=== PATIENT | female | born 1960 | race Hispanic/Latino ===

== ENCOUNTER 2018-06-14 15:00 | Outpatient (RCR) | payer OTHER | END 2018-06-16 | LOC: PT 15:00 | PROVIDERS: ATTEND Specialist | DX: M24.612 Ankylosis, left shoulder (principal); M75.82 Other shoulder lesions, left shoulder ==

== ENCOUNTER 2018-06-23 15:00 | Outpatient (RCR) | payer OTHER | END 2018-07-16 | LOC: PT 15:00 | PROVIDERS: ATTEND Specialist | DX: M24.612 Ankylosis, left shoulder (principal); M75.82 Other shoulder lesions, left shoulder ==

== ENCOUNTER → 2018-07-28 | Outpatient (CLI) | payer OTHER ==
--- NOTE | 2018-07-28 12:57 | Diagnostic Imaging Report ---
EXAM: Complete Abdominal Ultrasound INDICATION: \S\BENIGN NEOPLASM OF DESCENDNING COLON COMPARISON: None. TECHNIQUE: Transverse and longitudinal images of the upper abdomen were obtained. FINDINGS: Liver: Size: 10.7 cm in the right midclavicular line, normal Appearance: Normal echogenicity, smooth contour Mass: No focal masses Spleen: Size: 11 cm in length, normal Echogenicity: Normal Mass: No focal masses Gallbladder: Cholecystectomy. Bile Ducts: Intrahepatic Ducts: No dilatation Extrahepatic Ducts: Common bile duct measures 0.8 cm, no dilatation Pancreas: Suboptimal evaluated. Kidneys: Length: Right 10.9 cm Left 11.2 cm Echogenicity: Normal Collecting System: No hydronephrosis Stone: None Cyst/Mass: None Vessels: Aorta: Visualized portions are normal Inferior Vena Cava: Visualized portions are normal Main Portal Vein: 0.9 cm, normal size with hepatopetal flow. Free Fluid: No ascites or pleural effusion IMPRESSION: Cholecystectomy. Otherwise, unremarkable abdominal ultrasound. Signed by: Dr. Stacey Newberry M.D. on 07/28/2018 12:53 PM
== END ==
LOC: US 11:32
PROVIDERS: ATTEND Internal Medicine Gastroenterology
DX: D12.4 Benign neoplasm of descending colon (principal); E11.9 Type 2 diabetes mellitus without complications; I85.00 Esophageal varices without bleeding
CPT/HCPCS: 76700

== ENCOUNTER 2021-09-17 21:09 | Inpatient (IN) | payer OTHER ==
[~2021-09-17] VITALS: Ht 154.9 cm; Wt 45.1 kg
[2021-09-17] MEDS ORDERED: ONDANSETRON HCL INJ 2MG/ML 2ML 2 MG/ML VIAL IV STA (21:14)
[2021-09-17 21:28] LABS: BASOPHILS # (AUTO) 0.1 (0.0-0.1); BASOPHILS % 0.5 % (0.0-1.0); EOSINOPHILS % 0.1 % (0.0-6.0); HEMATOCRIT 39.1 % (34.2-44.1); HEMOGLOBIN 12.8 g/dL (12.0-16.0); LYMPHOCYTES # (AUTO) 1.8 (1.0-3.2); LYMPHOCYTES % 17.5 % (18.0-39.1); MEAN CORPUSCULAR HEMOGLOBIN 32.3 pg (28-32); MEAN CORPUSCULAR HGB CONC 32.7 g/dL (31-35); MEAN CORPUSCULAR VOLUME 98.7 fL (81-99); MONOCYTES # (AUTO) 0.7 (0.2-0.8); MONOCYTES % 6.9 % (4.4-11.3); NEUTROPHILS # (AUTO) 7.5 (2.1-6.9); NEUTROPHILS % 72.3 % (38.7-80.0); PLATELET COUNT 142 x10e3/uL (140-360); RED BLOOD COUNT 3.96 x10e6/uL (3.6-5.1); RED CELL DISTRIBUTION WIDTH 13.8 % (11.7-14.4)
[2021-09-17 21:36] LABS: INR 1.34; PROTHROMBIN TIME 17.7 seconds (11.9-14.5)
[2021-09-17 21:37] LABS: PARTIAL THROMBOPLASTIN TIME 40.5 seconds (23.8-35.5)
[2021-09-17 21:42] LABS: AMYLASE 65 U/L (25-125); LIPASE 233 U/L (8-78)
[2021-09-17 21:48] LABS: ALANINE AMINOTRANSFERASE 45 IU/L (0-55); ALBUMIN 3.7 g/dL (3.5-5.0); ALBUMIN/GLOBULIN RATIO 0.8 (0.8-2.0); ALKALINE PHOSPHATASE 79 IU/L (40-150); BLOOD UREA NITROGEN 95 mg/dL (7-26); BUN/CREATININE RATIO 13 (6-25); CALCIUM 10.1 mg/dL (8.4-10.2); CHLORIDE 102 mmol/L (98-107); CREATININE, SERUM 7.14 mg/dL (0.57-1.11); EST GLOMERULAR FILTRATION RATE 6 ML/MIN (60-); GLUCOSE 133 mg/dL (74-118); SODIUM 136 mmol/L (136-145)
[2021-09-17 21:50] LABS: CARBON DIOXIDE < 5 mmol/L (22-29)
[2021-09-17] MEDS ORDERED: SODIUM BICARBONATE 8.4% INJ 50 ML SYR IV STA (22:48)
[2021-09-17] MEDS ORDERED: SODIUM CHLORIDE 0.9% 1000ML 1,000 ML IV ONE (23:00)
[2021-09-17] MEDS ORDERED: SODIUM BICARBONATE 8.4% 150 ML in DEXTROSE 5% 1,000 ML IV ONE (23:00)
[2021-09-17] MEDS ORDERED: DEXTROSE 5% 1,000 ML IV ONE (23:12)
[2021-09-17] MEDS ORDERED: SODIUM BICARBONATE 8.4% SYRING 100 ML ONE (23:13)
[2021-09-17] MEDS ORDERED: SODIUM BICARBONATE 8.4% SYRING 50 ML ONE (23:20)
[2021-09-17] MEDS ORDERED: ONDANSETRON HCL INJ 2MG/ML 2ML 2 MG/ML VIAL IV PRN (23:30)
[2021-09-17] MEDS ORDERED: DEXTROSE 50% SYRINGE 50 ML IV PRN (23:30)
[2021-09-18] VITALS (12 sets, daily range): BP systolic 87–111; BP diastolic 41–61
[2021-09-18 00:01] LABS: CLARITY,URINE CLEAR (CLEAR); COLOR,URINE YELLOW (YELLOW); KETONES,URINE 1+ (NEGATIVE); LEUKOCYTE ESTERASE ,URINE NEGATIVE (NEGATIVE); NITRITE,URINE NEGATIVE (NEGATIVE); PROTEIN,URINE DIPSTICK 2+ (NEGATIVE)
[2021-09-18 00:02] LABS: URINE UROBILINOGEN 0.2 mg/dL (0.2 - 1)
[2021-09-18 00:04] LABS: BACTERIA,URINE MODERATE /HPF; EPITHELIAL CELLS,URINE MODERATE /LPF; RBC,URINE 0-5 /HPF (0-5); WBC,URINE (MAN) 0-5 /HPF (0-5)
[2021-09-18] MEDS ORDERED: SODIUM CHLORIDE 0.9% 1000ML 1,000 ML IV STA (00:12)
[2021-09-18 00:15] LABS: CREATININE,URINE RANDOM 74.81 mg/dL (47-110)
[2021-09-18] MEDS ORDERED: SODIUM CHLORIDE 0.9% 1000ML 1,000 ML ONE (00:28)
[2021-09-18] MEDS: NOREPINEPHRINE 8 MG/D5W 250 ML 250 ML IV SCH (03:41)
[2021-09-18 03:48] LABS: CHLORIDE 105 mmol/L (98-107); SODIUM 142 mmol/L (136-145)
[2021-09-18 03:49] LABS: BLOOD UREA NITROGEN 90 mg/dL (7-26); BUN/CREATININE RATIO 15 (6-25); CALCIUM 7.7 mg/dL (8.4-10.2); CARBON DIOXIDE < 5 mmol/L (22-29); CREATININE, SERUM 6.01 mg/dL (0.57-1.11); EST GLOMERULAR FILTRATION RATE 7 ML/MIN (60-); GLUCOSE 200 mg/dL (74-118)
[2021-09-18 04:54] LABS: ABG PH 6.98 (7.35-7.45)
[2021-09-18] MEDS ORDERED: SODIUM BICARBONATE 8.4% INJ 50 ML SYR IV STA (04:54)
[2021-09-18 04:55] LABS: ABG HCO3 4 mmol/L (22-26); ABG PCO2 17 mmHg (35-45); ABG PO2 167 mmHg (80-105); ABG TCO2 < 5
[2021-09-18] MEDS ORDERED: SODIUM BICARBONATE 8.4% SYRING 100 ML ONE (05:09)
[2021-09-18] MEDS ORDERED: DEXTROSE 50% SYRINGE 50 ML IV PRN (05:15)
[2021-09-18] MEDS: INSULIN REGULAR, HUMAN 3ML VL 100 UNIT in SODIUM CHLORIDE 0.45% 100 ML 100 ML IV SCH ×2 (05:22)
[2021-09-18] MEDS ORDERED: INSULIN REGULAR, HUMAN 100 UNIT/1 ML ONE (05:24)
[2021-09-18] MEDS ORDERED: SODIUM CHLORIDE 0.9% 100 ML ONE (05:24)
[2021-09-18 06:04] LABS: BLOOD UREA NITROGEN 90 mg/dL (7-26); GLUCOSE 195 mg/dL (74-118); OSMOLALITY,SERUM 318 mOsm/kg (278-305); SODIUM 143 mmol/L (136-145)
[2021-09-18] MEDS ORDERED: SODIUM BICARBONATE 8.4% SYRING 50 ML ONE (06:53)
[2021-09-18] MEDS ORDERED: CALCIUM GLUCONATE 10% INJ 0.465 MEQ/ML VIAL ONE (06:54)
[2021-09-18] MEDS ORDERED: SODIUM CHLORIDE 0.9% 50ML 50 ML ONE (06:54)
[2021-09-18] MEDS ORDERED: SODIUM BICARBONATE 8.4% INJ 50 ML SYR IV ONE (07:00)
[2021-09-18 07:03] LABS: BASOPHILS # (AUTO) 0.1 (0.0-0.1); BASOPHILS % 0.6 % (0.0-1.0); EOSINOPHILS % 0.1 % (0.0-6.0); HEMATOCRIT 35.8 % (34.2-44.1); HEMOGLOBIN 11.3 g/dL (12.0-16.0); LYMPHOCYTES % 13.9 % (18.0-39.1); MEAN CORPUSCULAR HEMOGLOBIN 31.8 pg (28-32); MEAN CORPUSCULAR HGB CONC 31.6 g/dL (31-35); MEAN CORPUSCULAR VOLUME 100.8 fL (81-99); MONOCYTES # (AUTO) 1.3 (0.2-0.8); MONOCYTES % 9.3 % (4.4-11.3); NEUTROPHILS # (AUTO) 10.4 (2.1-6.9); NEUTROPHILS % 72.6 % (38.7-80.0); PLATELET COUNT 131 x10e3/uL (140-360); RED BLOOD COUNT 3.55 x10e6/uL (3.6-5.1)
[2021-09-18] MEDS ORDERED: CALCIUM GLUCONATE 10% INJ 4.65 MEQ in SODIUM CHLORIDE 0.9% 50ML 50 ML IV ONE (07:30)
[2021-09-18] MEDS ORDERED: INSULIN REGULAR, HUMAN 100 UNIT/1 ML SQ SCH (07:30)
[2021-09-18 07:31] LABS: ALBUMIN 2.9 g/dL (3.5-5.0); ALBUMIN/GLOBULIN RATIO 0.9 (0.8-2.0); ANION GAP 43.5 mmol/L (8-16); CALCIUM 7.9 mg/dL (8.4-10.2); CREATININE, SERUM 6.01 mg/dL (0.57-1.11); POTASSIUM 4.5 mmol/L (3.5-5.1)
[2021-09-18] MEDS ORDERED: Vancomycin IV 1 GM in SODIUM CHLORIDE 0.9% 250ML 250 ML IV ONE (07:45)
[2021-09-18] MEDS: CEFEPIME 1 GM in SODIUM CHLORIDE 0.9% 50ML 50 ML IV SCH ×2 (08:52→20:14)
[2021-09-18] MEDS ORDERED: MANNITOL 25% 12.5GM/50 ML VIAL IV PRN (09:30)
[2021-09-18] MEDS ORDERED: SODIUM CHLORIDE 0.9% 1000ML 2,000 ML IV PRN (09:30)
[2021-09-18] MEDS ORDERED: SODIUM BICARBONATE 8.4% SYRING 150 ML in DEXTROSE 5% 1,000 ML IV SCH (10:30)
[2021-09-18] MEDS ORDERED: SODIUM CHLORIDE 0.9% 250ML 250 ML ONE (11:26)
[2021-09-18] MEDS ORDERED: SODIUM CHLORIDE 0.9% 1000ML 1,000 ML IV ONE ×2 (11:30→18:00)
[2021-09-18 11:32] LABS: AMPHETAMINES SCREEN,URINE NEGATIVE (NEGATIVE); BENZODIAZEPINES SCREEN,URINE NEGATIVE (NEGATIVE); PHENCYCLIDINE SCREEN,URINE NEGATIVE (NEGATIVE)
[2021-09-18] MEDS: SODIUM BICARBONATE 8.4% SYRING 150 ML in STERILE WATER IV SOLN 1,000 ML IV SCH ×2 (11:59→21:17)
[2021-09-18] MEDS ORDERED: HEPARIN SOD (PORCINE) 1000 UNIT/ML SDV IV PRN (12:15)
[2021-09-18] MEDS ORDERED: SODIUM BICARBONATE 8.4% 150 ML in STERILE WATER IV SOLN 1,000 ML IV SCH (12:30)
[2021-09-18] MEDS ORDERED: KCL 20 MEQ PACKET/ ORAL SOLN NG SCH (13:15)
[2021-09-18] MEDS ORDERED: LOSARTAN POTASS25 MG PO (16:40)
[2021-09-18] MEDS ORDERED: ROCKLATAN 0.022.5 ML OP (16:40)
[2021-09-18] MEDS ORDERED: NADOLOL20 MG PO (16:40)
[2021-09-18] MEDS ORDERED: SIMBRINZA 1%-0.28 ML OP (16:40)
[2021-09-18] MEDS ORDERED: KOMBIGLYZE XR1 EAC2 PO (16:40)
[2021-09-18] MEDS ORDERED: PROTONIX20 MG PO (16:40)
[2021-09-18] MEDS ORDERED: FERROUS SULFAT325 MG PO (16:40)
[2021-09-18] MEDS ORDERED: ACETAZOLAMIDE250 MG PO (16:40)
[2021-09-19] VITALS (24 sets, daily range): BP systolic 90–126; BP diastolic 38–99
[2021-09-19] MEDS: NOREPINEPHRINE 8 MG/D5W 250 ML 250 ML IV SCH (03:15)
[2021-09-19 04:49] LABS: BASOPHILS % 0.2 % (0.0-1.0); EOSINOPHILS % 0.1 % (0.0-6.0); HEMATOCRIT 26.9 % (34.2-44.1); HEMOGLOBIN 9.9 g/dL (12.0-16.0); LYMPHOCYTES # (AUTO) 0.9 (1.0-3.2); LYMPHOCYTES % 9.9 % (18.0-39.1); MEAN CORPUSCULAR HEMOGLOBIN 31.7 pg (28-32); MEAN CORPUSCULAR HGB CONC 36.8 g/dL (31-35); MEAN CORPUSCULAR VOLUME 86.2 fL (81-99); MONOCYTES # (AUTO) 1.1 (0.2-0.8); MONOCYTES % 12.2 % (4.4-11.3); NEUTROPHILS # (AUTO) 6.9 (2.1-6.9); NEUTROPHILS % 77.3 % (38.7-80.0); PLATELET COUNT 67 x10e3/uL (140-360); RED BLOOD COUNT 3.12 x10e6/uL (3.6-5.1); RED CELL DISTRIBUTION WIDTH 13.2 % (11.7-14.4)
[2021-09-19 05:15] LABS: ALBUMIN 3.2 g/dL (3.5-5.0); ALBUMIN/GLOBULIN RATIO 1.1 (0.8-2.0); ANION GAP 20.2 mmol/L (8-16)
[2021-09-19 05:20] LABS: CREATININE, SERUM 2.32 mg/dL (0.57-1.11); POTASSIUM 2.2 mmol/L (3.5-5.1)
[2021-09-19] MEDS ORDERED: POTASSIUM CHLORIDE 20MEQ/100ML 300 ML IV ONE (05:45)
[2021-09-19] MEDS: DEXTROSE 5%/0.45% SOD CHL 1,000 ML IV SCH ×2 (05:55→16:25)
[2021-09-19 05:57] LABS: MAGNESIUM 1.5 MG/DL (1.3-2.1); PHOSPHORUS 3.2 MG/DL (2.3-4.7)
[2021-09-19] MEDS ORDERED: POTASSIUM CHLORIDE 20MEQ/100ML 300 ML ONE (06:01)
[2021-09-19] MEDS ORDERED: DEXTROSE 5%/0.45% SOD CHL 1,000 ML IV ONE (06:02)
[2021-09-19] MEDS ORDERED: MAGNESIUM SULFATE 2GM/50ML 50 ML IV ONE (07:00)
[2021-09-19] MEDS: CEFEPIME 1 GM in SODIUM CHLORIDE 0.9% 50ML 50 ML IV SCH (09:55)
[2021-09-19] MEDS: INSULIN REGULAR, HUMAN 3ML VL 100 UNIT in SODIUM CHLORIDE 0.45% 100 ML 100 ML IV SCH ×2 (18:10)
[2021-09-20] VITALS (20 sets, daily range): BP systolic 96–149; BP diastolic 45–70
[2021-09-20] MEDS: DEXTROSE 5%/0.45% SOD CHL 1,000 ML IV SCH (01:17)
[2021-09-20] MEDS: NOREPINEPHRINE 8 MG/D5W 250 ML 250 ML IV SCH (03:09)
[2021-09-20 05:57] LABS: ANION GAP 9.3 mmol/L (8-16); CALCIUM 7.3 mg/dL (8.4-10.2); CREATININE, SERUM 1.02 mg/dL (0.57-1.11); MAGNESIUM 1.4 MG/DL (1.3-2.1); PHOSPHORUS 1.6 MG/DL (2.3-4.7)
[2021-09-20 05:58] LABS: POTASSIUM 2.3 mmol/L (3.5-5.1)
[2021-09-20] MEDS ORDERED: MAGNESIUM SULFATE 2GM/50ML 100 ML IV ONE (06:15)
[2021-09-20] MEDS ORDERED: POTASSIUM PHOSPHATE 20 MM in SODIUM CHLORIDE 0.9% 250ML 250 ML IV ONE ×2 (06:15→10:00)
[2021-09-20] MEDS ORDERED: POTASSIUM CHLORIDE 10MEQ EA PO ONE (07:00)
[2021-09-20] MEDS: CEFTRIAXONE 1 GM in SODIUM CHLORIDE 0.9% 50ML 50 ML IV SCH (10:04)
[2021-09-20] MEDS ORDERED: POTASSIUM CHLORIDE 20MEQ/100ML 200 ML IV ONE (11:30)
[2021-09-20] MEDS ORDERED: DEXTROSE 50% SYRINGE 50 ML IV PRN (11:30)
[2021-09-20] MEDS: INSULIN REGULAR, HUMAN 100 UNIT/1 ML SQ SCH ×3 (12:07→21:02)
[2021-09-20] MEDS: BRINZOLAMIDE OP SCH (17:11)
[2021-09-20] MEDS: LATANOPROST OP SCH (17:11)
[2021-09-20] MEDS: BRIMONIDINE TARTRATE OP SCH (17:11)
[2021-09-20] MEDS: NETARSUDIL OP SCH (17:11)
[2021-09-21] VITALS (8 sets, daily range): BP systolic 110–157; BP diastolic 58–84
[2021-09-21 05:25] LABS: EOSINOPHILS % 1.2 % (0.0-6.0); HEMATOCRIT 24.7 % (34.2-44.1); LYMPHOCYTES # (AUTO) 0.7 (1.0-3.2); MEAN CORPUSCULAR HGB CONC 36.4 g/dL (31-35); MEAN CORPUSCULAR VOLUME 87.9 fL (81-99); MONOCYTES # (AUTO) 0.4 (0.2-0.8); MONOCYTES % 10.8 % (4.4-11.3); NEUTROPHILS # (AUTO) 2.2 (2.1-6.9); NEUTROPHILS % 66.7 % (38.7-80.0); RED BLOOD COUNT 2.81 x10e6/uL (3.6-5.1); RED CELL DISTRIBUTION WIDTH 13.4 % (11.7-14.4)
[2021-09-21 05:54] LABS: ALBUMIN 2.8 g/dL (3.5-5.0); ANION GAP 11.4 mmol/L (8-16); CALCIUM 7.4 mg/dL (8.4-10.2); CREATININE, SERUM 0.79 mg/dL (0.57-1.11); POTASSIUM 3.4 mmol/L (3.5-5.1)
[2021-09-21 06:14] LABS: % IRON SATURATION 40 % (15-50); IRON 85 ug/dL (50-170); TOTAL IRON BINDING CAPACITY 211 ug/dL (261-478); TRANSFERRIN 151 mg/dL (180-382)
[2021-09-21 06:28] LABS: MAGNESIUM 1.8 MG/DL (1.3-2.1); PHOSPHORUS 2.3 MG/DL (2.3-4.7)
[2021-09-21 06:38] LABS: PLATELET COUNT 24 x10e3/uL (140-360)
[2021-09-21] MEDS: CEFTRIAXONE 1 GM in SODIUM CHLORIDE 0.9% 50ML 50 ML IV SCH (08:07)
[2021-09-21] MEDS: NETARSUDIL OP SCH ×2 (08:09→16:19)
[2021-09-21] MEDS: BRIMONIDINE TARTRATE OP SCH ×2 (08:09→16:19)
[2021-09-21] MEDS: BRINZOLAMIDE OP SCH ×2 (08:09→16:19)
[2021-09-21] MEDS: INSULIN REGULAR, HUMAN 100 UNIT/1 ML SQ SCH ×2 (08:09→11:27)
[2021-09-21] MEDS: LATANOPROST OP SCH ×2 (08:09→16:19)
[2021-09-21] MEDS ORDERED: ONDANSETRON HCL 4 MG ORAL DISINTEGRATING TAB PO PRN (12:45)
[2021-09-21 15:08] LABS: FREE T4 (FREE THYROXINE) 1.26 ng/dL (0.8-1.8); THYROID STIMULATING HORMONE 0.462 uIU/mL (0.350-4.940)
[2021-09-21] MEDS: INSULIN LISPRO 100 UNIT/1 ML 3ML VIAL SQ SCH ×2 (16:19→21:31)
[2021-09-21] MEDS ORDERED: INSULIN GLARGINE 100 UNITS/ML VIAL SQ SCH (21:00)
[2021-09-22] VITALS (9 sets, daily range): BP systolic 139–175; BP diastolic 52–82
[2021-09-22 05:06] LABS: BASOPHILS % 0.3 % (0.0-1.0); EOSINOPHILS # (AUTO) 0.2 (0.0-0.4); EOSINOPHILS % 3.8 % (0.0-6.0); HEMOGLOBIN 9.7 g/dL (12.0-16.0); LYMPHOCYTES # (AUTO) 0.9 (1.0-3.2); LYMPHOCYTES % 23.3 % (18.0-39.1); MEAN CORPUSCULAR HEMOGLOBIN 31.4 pg (28-32); MEAN CORPUSCULAR HGB CONC 35.9 g/dL (31-35); MEAN CORPUSCULAR VOLUME 87.4 fL (81-99); MONOCYTES # (AUTO) 0.5 (0.2-0.8); MONOCYTES % 12.3 % (4.4-11.3); NEUTROPHILS # (AUTO) 2.3 (2.1-6.9); NEUTROPHILS % 59.5 % (38.7-80.0); RED BLOOD COUNT 3.09 x10e6/uL (3.6-5.1); RED CELL DISTRIBUTION WIDTH 13.1 % (11.7-14.4)
[2021-09-22 05:14] LABS: PLATELET COUNT 34 x10e3/uL (140-360)
[2021-09-22 05:49] LABS: ALBUMIN 3.1 g/dL (3.5-5.0); CALCIUM 7.8 mg/dL (8.4-10.2); CREATININE, SERUM 0.71 mg/dL (0.57-1.11); MAGNESIUM 1.4 MG/DL (1.3-2.1); PHOSPHORUS 2.4 MG/DL (2.3-4.7)
[2021-09-22] MEDS: INSULIN LISPRO 100 UNIT/1 ML 3ML VIAL SQ SCH ×4 (07:30→20:27)
[2021-09-22] MEDS ORDERED: POTASSIUM CHLORIDE 20 MEQ TAB CR PO NR (08:30)
[2021-09-22] MEDS: CEFTRIAXONE 1 GM in SODIUM CHLORIDE 0.9% 50ML 50 ML IV SCH (08:57)
[2021-09-22] MEDS: BRINZOLAMIDE OP SCH ×2 (08:58→17:17)
[2021-09-22] MEDS: LATANOPROST OP SCH ×2 (08:58→17:17)
[2021-09-22] MEDS: NETARSUDIL OP SCH ×2 (08:58→17:17)
[2021-09-22] MEDS: BRIMONIDINE TARTRATE OP SCH ×2 (08:58→17:17)
[2021-09-22] MEDS ORDERED: PIOGLITAZONE HCL 45 MG TAB PO SCH (09:00)
[2021-09-22] MEDS ORDERED: INSULIN GLARGINE 100 UNITS/ML VIAL SQ SCH (21:00)
[2021-09-23 00:45] VITALS: BP 169/82
[2021-09-23 04:00] VITALS: BP 138/73
[2021-09-23 05:02] LABS: BASOPHILS % 0.3 % (0.0-1.0); EOSINOPHILS # (AUTO) 0.1 (0.0-0.4); EOSINOPHILS % 2.7 % (0.0-6.0); HEMATOCRIT 23.3 % (34.2-44.1); HEMOGLOBIN 8.6 g/dL (12.0-16.0); LYMPHOCYTES # (AUTO) 0.8 (1.0-3.2); LYMPHOCYTES % 22.1 % (18.0-39.1); MEAN CORPUSCULAR HEMOGLOBIN 32.3 pg (28-32); MEAN CORPUSCULAR HGB CONC 36.9 g/dL (31-35); MEAN CORPUSCULAR VOLUME 87.6 fL (81-99); MONOCYTES # (AUTO) 0.5 (0.2-0.8); MONOCYTES % 13.9 % (4.4-11.3); NEUTROPHILS # (AUTO) 2.2 (2.1-6.9); NEUTROPHILS % 59.9 % (38.7-80.0); RED BLOOD COUNT 2.66 x10e6/uL (3.6-5.1); RED CELL DISTRIBUTION WIDTH 13.2 % (11.7-14.4)
[2021-09-23 05:07] LABS: PLATELET COUNT 43 x10e3/uL (140-360)
[2021-09-23 05:33] LABS: ANION GAP 12.3 mmol/L (8-16); CALCIUM 7.9 mg/dL (8.4-10.2); CREATININE, SERUM 0.62 mg/dL (0.57-1.11); POTASSIUM 3.3 mmol/L (3.5-5.1)
[2021-09-23] MEDS: INSULIN LISPRO 100 UNIT/1 ML 3ML VIAL SQ SCH ×3 (07:30→16:30)
[2021-09-23 08:04] VITALS: BP 111/56
[2021-09-23] MEDS: BRIMONIDINE TARTRATE OP SCH ×2 (09:00→17:00)
[2021-09-23] MEDS: NETARSUDIL OP SCH ×2 (09:00→17:00)
[2021-09-23] MEDS: BRINZOLAMIDE OP SCH ×2 (09:00→17:00)
[2021-09-23] MEDS: LATANOPROST OP SCH ×2 (09:00→17:00)
[2021-09-23 09:47] VITALS: BP 111/56
[2021-09-23 12:06] VITALS: BP 119/60
[2021-09-23] MEDS ORDERED: PANTOPRAZOLE SOD 40 MG TABEC PO SCH (16:30)
[2021-09-23 16:35] VITALS: BP 147/65
[2021-09-23] MEDS ORDERED: LANTUS 3ML100 UNITS/ SQ (17:32)
== END 2021-09-23 18:07 | disposition home or self-care (01) | DRG 871 ==
LOC: ER 21:13 → ERHOLD 23:46 → ICU 09-18 05:35 → MED/SURG 09-20 23:31
PROVIDERS: ADMIT Internal Medicine; ATTEND Internal Medicine
PROC: 3E033XZ Introduction of Vasopressor into Peripheral Vein, Percutaneous Approach (ICD-10-PCS; principal; 2021-09-18)
PROC: 02HV33Z Insertion of Infusion Device into Superior Vena Cava, Percutaneous Approach (ICD-10-PCS; 2021-09-18)
PROC: 5A1D70Z Performance of Urinary Filtration, Intermittent, Less than 6 Hours Per Day (ICD-10-PCS; 2021-09-18)
PROC: 30243K1 Transfusion of Nonautologous Frozen Plasma into Central Vein, Percutaneous Approach (ICD-10-PCS; 2021-09-18)
DX: A41.9 Sepsis, unspecified organism (principal); E11.10 Type 2 diabetes mellitus with ketoacidosis without coma; G93.41 Metabolic encephalopathy; R65.21 Severe sepsis with septic shock; N17.0 Acute kidney failure with tubular necrosis; R57.1 Hypovolemic shock; E87.2 Acidosis; D68.9 Coagulation defect, unspecified; R18.8 Other ascites; A09 Infectious gastroenteritis and colitis, unspecified; D61.818 Other pancytopenia; K74.60 Unspecified cirrhosis of liver; K72.90 Hepatic failure, unspecified without coma; D69.59 Other secondary thrombocytopenia; Z90.49 Acquired absence of other specified parts of digestive tract; E11.65 Type 2 diabetes mellitus with hyperglycemia; E86.0 Dehydration; E87.6 Hypokalemia; K75.81 Nonalcoholic steatohepatitis (NASH); T38.3X5A Adverse effect of insulin and oral hypoglycemic [antidiabetic] drugs, initial encounter; E87.8 Other disorders of electrolyte and fluid balance, not elsewhere classified; Z20.822 Contact with and (suspected) exposure to COVID-19; E11.22 Type 2 diabetes mellitus with diabetic chronic kidney disease; I12.9 Hypertensive chronic kidney disease with stage 1 through stage 4 chronic kidney disease, or unspecified chronic kidney disease; N18.9 Chronic kidney disease, unspecified
CPT/HCPCS: 36415; 36555; 36600; 51700; 71045; 74176; 76705; 76770; 80048; 80053; 80307; 80329; 81001; 82140; 82150; 82533; 82570; 82607; 82746; 82805; 82947; 82948; 83036; 83540; 83605; 83630; 83690; 83735; 83993; 84100; 84295; 84300; 84439; 84443; 84466; 84520; 84550; 85025; 85045; 85610; 85730; 86022; 86705; 86706; 86900; 87040; 87045; 87177; 87340; 87493; 90962; 93005; 93306; 94799; 97139; 99285; J0610; J0692; J0696; J1644; J1815; J1817; J2150; J2405; J3370; J3475; J3480; J7030; J7050; J7070; P9017; U0002

== ENCOUNTER 2025-07-02 11:50 | Emergency (ER) | payer OTHER ==
[~2025-07-02] VITALS: Ht 152.4 cm; Wt 49.0 kg
[~2025-07-02 11:50] MED LIST: ACETAZOLAMIDE250 MG PO; FERROUS SULFAT325 MG PO; KOMBIGLYZE XR1 EAC2 PO; LANTUS 3ML100 UNITS/ SQ; LOSARTAN POTASS25 MG PO; NADOLOL20 MG PO; PROTONIX20 MG PO; ROCKLATAN 0.022.5 ML OP; SIMBRINZA 1%-0.28 ML OP
[2025-07-02 12:09] VITALS: TEMP 98.2
[2025-07-02] MEDS: TRAMADOL HCL 50 MG TAB PO ONE (13:10)
[2025-07-02] MEDS: KETOROLAC TROMETHAMINE 30 MG/ML VIAL IM STA (13:10)
[2025-07-02] MEDS ORDERED: HYDROCODON-ACE1 EA11 PO (14:44)
[2025-07-02 14:54] VITALS: PULSE 78; RESP 15; O2SAT 98
== END 2025-07-02 15:00 | disposition home or self-care (01) ==
LOC: ER 12:20
DX: S42.212A Unspecified displaced fracture of surgical neck of left humerus, initial encounter for closed fracture (principal); W01.0XXA Fall on same level from slipping, tripping and stumbling without subsequent striking against object, initial encounter; Y93.01 Activity, walking, marching and hiking; Y92.89 Other specified places as the place of occurrence of the external cause; I10 Essential (primary) hypertension; E11.9 Type 2 diabetes mellitus without complications; K76.9 Liver disease, unspecified
CPT/HCPCS: 73030; 73080; 73110; 99283; J1885